=== PATIENT | female | born 1995 | race African-American/Black ===

== ENCOUNTER 2021-01-24 17:36 | Emergency (ER) | payer SELFPAY ==
[2021-01-24 19:29] LABS: Bilirubin Neg (Negative); Blood, Urine Negative (Negative); Clarity Clear (Clear); Glucose, Urine (Dipstick) Normal (Negative); Ketone, Urine 5 mg/dL (Negative); Leukocyte 25 (Negative); Nitrite Negative (Negative); Protein, Urine (Dipstick) Negative (Neg-Trace); Specific Gravity, Urine 1.015 (1.002-1.036); Urobilinogen Normal mg/dL (Less than 2)
[2021-01-24 19:31] LABS: Pregnancy Test - Urine (BHCG) Negative (Negative); Pregu Control Background? CLEAR/WHITE (CLR/WHITE); Pregu Control Bar Appear? YES (CONTROL BAR); Specific Gravity 1.015 (1.002-1.036)
[2021-01-24 19:38] LABS: Bacteria/HPF 1+ HPF (None Seen); RBC/HPF None Seen HPF (0-3); WBC/HPF 0-3 HPF (0-3)
== END 2021-01-24 21:03 | disposition home or self-care (01) ==
LOC: CSHERS 17:36
DX: R10.30 Lower abdominal pain, unspecified (principal)
CPT/HCPCS: 81003; 81015; 81025; 87086; 99284

== ENCOUNTER 2021-07-10 00:12 | Emergency (ER) | payer SELFPAY ==
[2021-07-10] MEDS ORDERED: Ciprofloxacin 500 MG TAB ONE (01:03)
== END 2021-07-10 01:05 | disposition home or self-care (01) ==
LOC: CSHERS 00:12
DX: L73.9 Follicular disorder, unspecified (principal)
CPT/HCPCS: 99282

== ENCOUNTER 2023-09-11 12:17 | Emergency (ER) | payer SELFPAY ==
[2023-09-11] MEDS ORDERED: Ketorolac Tromethamine 30 MG (1 mL) VIAL ONE (13:31)
[2023-09-11] MEDS ORDERED: Dexamethasone 4 MG TAB ONE (13:31)
[2023-09-11 13:33] LABS: Bilirubin Neg (Negative); Blood, Urine Negative (Negative); Clarity Slightly Cloudy (Clear); Glucose, Urine (Dipstick) Normal (Negative); Ketone, Urine Negative (Negative); Leukocyte 500 (Negative); Nitrite Negative (Negative); Protein, Urine (Dipstick) Negative (Neg-Trace); Urobilinogen Normal mg/dL (Less than 2)
[2023-09-11 13:36] LABS: Pregnancy Test - Urine (BHCG) Negative (Negative); Pregu Control Background? CLEAR/WHITE (CLR/WHITE); Pregu Control Bar Appear? YES (CONTROL BAR)
[2023-09-11 13:58] LABS: CAUTI Indications for Culture Pregnancy; RBC/HPF 0-3 HPF (0-3)
[2023-09-11 13:59] LABS: Bacteria/HPF 1+ HPF (None Seen); Trichomonas/HPF Rare HPF (None Seen)
[2023-09-11 14:00] LABS: Urine Culture Reflex Yes Yes
[2023-09-11] MEDS ORDERED: Azithromycin 250 MG TAB ONE (14:05)
[2023-09-11] MEDS ORDERED: Sterile Water 10 ML ONE (14:05)
[2023-09-11] MEDS ORDERED: cefTRIAXone (ROCEPHIN) 500 MG VIAL ONE (14:06)
[2023-09-11 14:13] LABS: Influenza A by NAA Not Detected (NotDetected); Influenza B by NAA Not Detected (NotDetected); SARS-CoV-2 NAA Rapid Test Not Detected (NotDetected)
== END 2023-09-11 14:25 | disposition home or self-care (01) ==
LOC: CSHERS 12:17
DX: N39.0 Urinary tract infection, site not specified (principal); A59.9 Trichomoniasis, unspecified; Z11.3 Encounter for screening for infections with a predominantly sexual mode of transmission
CPT/HCPCS: 81001; 81025; 87086; 96372; J0696; J1885; J8540

== ENCOUNTER 2023-10-09 20:35 | Emergency (ER) | payer SELFPAY | END 2023-10-09 21:06 | LOC: CSHERS 20:35 | DX: Z53.21 Procedure and treatment not carried out due to patient leaving prior to being seen by health care provider (principal) ==